=== PATIENT | female | born 1945 | race Caucasian/White ===

== ENCOUNTER 2023-08-05 20:51 | Inpatient (IN) | payer OTHER, SELFPAY ==
[2023-08-05 21:16] VITALS: BP 143/64; PULSE 72; RESP 16; TEMP 36.2; O2SAT 99
[2023-08-06 03:29] VITALS: BMI 23.3
--- NOTE | 2023-08-06 04:55 | PC.ADMIT ---
Pt is a 78 years old female admitted to the unit after referral from care team at [facility] from her assisted living facility. Pt arrived on unit at 20:48. Legal status: CV, placed on 5mins checks. Current medical issues are unspecified Dementia and unspecified Depressive disorder. pt has no records of substance use. per crisis note, she was found by facility staff very frightened, crying and unable to recognize staff. Per pt's facility staff, pt has had worsening emotional deregulation over the past month. Current presentation at the time of admission; pt is alert and oriented to self and place, calm and cooperative, pt able to tell she was in the hospital but not sure which hospital. skin check intact except for mild skin irritation noted on anterior chest area from what looks like coronel from EKG leads. pt reported neck pain/discomfort but declined to take any medication. pt has steady gait, walks independently. Provider oncall notified of admission and orders obtained. Pt reports feeling safe in hospital.
[2023-08-06 08:36] VITALS: BP 112/67; PULSE 83; TEMP 36.7; O2SAT 98
--- NOTE | 2023-08-06 11:54 | HO.PM.IMCN ---
History of Present Illness Data of Consult Service Date: 08/06/23 Requesting physician: Roberto Basilio Primary Care Provider: Vinicio Saunders MD HPI Reason for consult: medical H&P 78-year-old female with history of hyperlipidemia, hypothyroidism, hypertension, and anxiety and depression admitted to Psychiatry with consult placed to hospitalist service for medical H and P. She is not good historian. Reviewed labs from prior ED which are reassuring. She has no complaints at this time. She denies any alcohol use, illicit drug use, or cigarette smoking. Review of Systems Review of Systems: General: No fevers, malaise, unintentional weight loss HEENT: No blurred vision, diplopia. No sore throat, nasal congestion, rhinorrhea, sinus pain, ear pain Cardiovascular: No chest pain, palpitations, or leg edema Respiratory: No shortness of breath, wheezing, cough GI: No abdominal pain, nausea, vomiting, diarrhea, constipation, melena, hematochezia : No dysuria, hematuria, increased urinary frequency, decreased urinary output MSK: No myalgia, back pain Neuro: No headaches, weakness, paresthesias Skin: No rashes or lesions [facility] Medical History Hyperlipidemia Anxiety and depression Hypothyroidism HTN (hypertension) Social History Housing: Assisted Living Facility Unable to assess alcohol history related to: Unknown Patient Tobacco Use Status: Tobacco use Unknown Currently Displaying Signs/Symptoms of Drug Intoxication Withdrawal: No Advance Directives: No Advance Directives Information Provided: No Do you have thoughts of harming others: None Do you have a plan to hurt others: No Plan Patient : No Meds Allergies Allergy/AdvReac Type Severity Reaction Status Date / Time aspirin Allergy Unknown Unknown Verified 08/05/23 21:31 Penicillins Allergy Unknown Unknown Verified 08/05/23 21:31 NSAIDS (Non-Steroidal AdvReac Unknown Unknown Verified 08/05/23 21:31 Anti-Inflamma Active Medications: Current Medications Acetaminophen (Acetaminophen 325 Mg Tablet) 650 mg PO Q6H PRN PRN Reason: Headache/Pain Mild Scale (1-3) Al Hydroxide/Mg Hydroxide (Magnesium Hydrox/Alum Hydrox 30 Ml Oral.Susp) 30 ml PO Q6H PRN PRN Reason: Heartburn/Nausea Magnesium Hydroxide (Milk Of Magnesia 30 Ml Oral.Susp) 30 ml PO DAILY PRN PRN Reason: Constipation Trazodone HCl (Trazodone Hcl 50 Mg Tablet) 50 mg PO BEDTIME MRX1 PRN PRN Reason: Insomnia Home Medications Medication Instructions Recorded Confirmed Last Taken Type atorvastatin 80 mg tablet 80 mg PO BEDTIME 08/05/23 08/06/23 Unknown History duloxetine 60 mg capsule,delayed 60 mg PO DAILY 08/05/23 08/06/23 Unknown History release sprinkle levothyroxine 88 mcg capsule 88 mcg PO DAILY 08/05/23 08/06/23 Unknown History lisinopril 5 mg tablet 5 mg PO DAILY 08/05/23 08/06/23 Unknown History lorazepam 1 mg tablet (Ativan) 1 mg PO NEEDED 08/05/23 08/06/23 Unknown History lorazepam 1 mg tablet (Ativan) 1 mg PO BEDTIME 08/05/23 08/06/23 Unknown History Physical Exam Vital Signs and Narrative: Vital Signs: Last Vital Signs Temp 98.0 F 08/06/23 08:36 Pulse 83 08/06/23 08:36 Resp 16 08/05/23 21:16 BP 112/67 08/06/23 08:36 Pulse Ox 98 08/06/23 08:36 O2 Del Method Room Air 08/06/23 08:36 BMI result Body Mass Index 23.3 Constitutional - Awake and Alert, No apparent distress Eyes - PERRLA, EOMI Cardiovascular - S1S2, RRR, No edema Respiratory - Normal lung expansion, Normal respiratory effort, No respiratory distress, CTA bilaterally Gastrointestinal - NT / ND; +BS; No rebound or guarding Extremities - no calf tenderness bilaterally, no swelling Musculoskeletal - Normal inspection, normal ROM Skin - Warm/Dry Neurological - Alert & oriented x3, CN II-XII in tact, 5/5 strength BUE and BLE Psychological - Appropriate affect Assessment and Plan (1) Routine medical exam: Status: Acute Plan 78-year-old female with history of hyperlipidemia, hypothyroidism, hypertension, and anxiety and depression admitted to Psychiatry with consult placed to hospitalist service for medical H and P. #Mood disorder -plan per psychiatry # hypothyroidism -continue Synthroid # hypertension -blood pressure controlled -continue lisinopril # hyperlipidemia -continue statin Thank you for allowing me to participate in this consult. Signing off at this time. Please do not hesitate to call for further questions. Time Spent With Patient Time: Total time managing care of this patient today ____ minutes.
--- NOTE | 2023-08-06 13:42 | P.HPPS_ITS ---
HPI Date of Service: 08/06/23 Chief Complaint: Unspecified dementia Unspecified depressive disord Sources of Information: patient interviewed, chart reviewed and crisis/core team assessment reviewed HPI Subjective Notes: [place] Warning and Section 12B Narrative: Ms. Ansari is a 78 year-old woman with hx of AD dementia. Pt was brought via [place] [facility] ED due to increased agitation, crying, drooling and increasingly more confused. Medical work up in the ED including CBC, CMP, head CT. UA did not show s/s of UTI. Chest X-ray. All unremarkable. Per [id number] cymbalta had been increased and pt few days after presented as more paranoid and suspicious, reporting that she was . On the unit, pt presents as tearful. She does not know where she is. She reports one of her son's was murdered. She reports I don't know if it was here. Pt unable to provide much information. She asks this curriculum writer to contact her family. She does say that she has memory problems and she is forgetful. She is not able to tell me the year, month or date. Past Psychiatric History: Inpatient: none OP: [facility], Dr. Valdivia [phone] Past medication trials: cymbalta. Medical Evaluation Reviewed: Yes [facility] Medical History Hyperlipidemia Anxiety and depression Hypothyroidism HTN (hypertension) Social History: Pt has 4 sons. Two of them . One in fact was murder. She resides at [place]. Substance History: None Trauma History: lost two sons Diagnostics Vital Signs (24Hr): Vital Signs - 24 hr 08/05/23 21:16 08/06/23 08:36 Temperature 97.2 F 98.0 F Pulse Rate 72 83 Respiratory Rate 16 Blood Pressure 143/64 H 112/67 Pulse Oximetry 99 98 Oxygen Delivery Method Room Air Room Air BMI result Body Mass Index 23.3 Meds/Allergies Meds Home Medications Medication Instructions Recorded Confirmed Type atorvastatin 80 mg tablet 80 mg PO BEDTIME 08/05/23 08/06/23 History duloxetine 60 mg capsule,delayed 60 mg PO DAILY 08/05/23 08/06/23 History release sprinkle levothyroxine 88 mcg capsule 88 mcg PO DAILY 08/05/23 08/06/23 History lisinopril 5 mg tablet 5 mg PO DAILY 08/05/23 08/06/23 History lorazepam 1 mg tablet (Ativan) 1 mg PO NEEDED 08/05/23 08/06/23 History lorazepam 1 mg tablet (Ativan) 1 mg PO BEDTIME 08/05/23 08/06/23 History Allergies Allergies Allergy/AdvReac Type Severity Reaction Status Date / Time aspirin Allergy Unknown Unknown Verified 08/05/23 21:31 Penicillins Allergy Unknown Unknown Verified 08/05/23 21:31 NSAIDS (Non-Steroidal AdvReac Unknown Unknown Verified 08/05/23 21:31 Anti-Inflamma Mental Status Exam Mental Status Exam Narrative: Appearance:casually groomed, fair hygiene, in NAD behavior:fearful Psychomotor: no agitation or retardation noted Speech:mumbles, delayed in response, spontaneous TP:disorganized TC:talks about son who was murder, fearful of being here Mood: I don't know Affect:fearful, anxious SI:none HI:none VH/AH:appears internally preoccupied Delusions:delusions of being and thinks that resident is her - this is new in past 2 weeks. Insight/judgment: memory/cog: alert, not oriented to situation, month, date, year. Assessment & Plan Assessment & Plan (1) Major neurocognitive disorder due to Alzheimer's disease: Status: Acute Code(s): G30.9 - Alzheimer's disease, unspecified; F02.80 - Dementia in other diseases classified elsewhere, unspecified severity, without behavioral disturbance, psychotic disturbance, mood disturbance, and anxiety Plan Mrs. Ansari is a 78 year-old woman hx of AD who was brought from [place] to [facility] ED due to increase confusion, paranoid delusions of being and being to another resident. [id number] reports increase in paranoia since cymbalta was started 3 weeks ago and recently dose increased. Will stop cymbalta, reassess prior to starting antipsychotic if psychosis persists. PLAN 1. Admit to [place], Sect 12b, 15 minutes checks for safety 2. stop cymbalta 3. Obtain collateral information 4. Aftercare planning Patient educated on: diagnosis (HCP- pt does not have capacity. ) and medication risk/benefits Reason for continued inpatient stay Substantial Risk for: inability to function Statement Statement: I have reviewed the history and physical and performed a pertinent examination on my patient. No changes have occurred unless specified. If the History and Physical was not performed prior to admission, the Hospitalist's service will be consulted for completing the admission physical. Time Spent With Patient Time: Total time managing care of this patient today ____ minutes.
[2023-08-06 18:00] VITALS: BP 154/74; PULSE 86; RESP 18; TEMP 36.6; O2SAT 97
--- NOTE | 2023-08-06 23:18 | PC.NURSE ---
Assumed care of patient 19:00 08/06. See assessments for full details. Handoff report given 23:00.
[2023-08-07 07:45] VITALS: BP 130/68; PULSE 89; RESP 16; TEMP 36.8; O2SAT 95
[2023-08-07 18:16] VITALS: BP 133/79; PULSE 94
[2023-08-07] MEDS: lisinopriL 5 MG TABLET PO (18:16)
--- NOTE | 2023-08-07 20:13 | HO.PSYCHPN ---
Subjective Subjective Date of Service: 08/07/23 Reason For Visit: Unspecified dementia Unspecified depressive disord Subjective Notes: Conditional Voluntary Healthcare Proxy: Yes Interim History: Pt presents as more organized. she reports doing well. She does become tearful and reports missing family. Pt not oriented to place or situation. She is nor reporting ideas of being or resident being her . Pt slept throught the night. collateral information gathered from her [id number] Haylee, who reports she became more paranoid with cymbalta. she has not gotten cymbalta here and is doing much better. Review of Systems Review of Systems Pt denies chest pain, or other type of pain. No SOB. No diarrhea or constipation. Mental Status Exam Mental Status Exam Narrative: Appearance:casually groomed, fair hygiene, in NAD behavior:fearful Psychomotor: no agitation or retardation noted Speech:mumbles, delayed in response, spontaneous TP:disorganized TC:talks about son who was murder, fearful of being here Mood: I don't know Affect:fearful, anxious SI:none HI:none VH/AH:appears internally preoccupied Delusions:delusions of being and thinks that resident is her - this is new in past 2 weeks. Insight/judgment: memory/cog: alert, not oriented to situation, month, date, year. Diagnostics Vital Signs (24Hr): Vital Signs - 24 hr 08/07/23 07:45 08/07/23 18:16 Temperature 98.2 F Pulse Rate 89 94 Respiratory Rate 16 Blood Pressure 130/68 133/79 Pulse Oximetry 95 Oxygen Delivery Method Room Air BMI result Body Mass Index 23.3 Medications Medications Current Medications Acetaminophen (Acetaminophen 325 Mg Tablet) 325 mg PO Q6H PRN PRN Reason: Headache/Pain Mild Scale (1-3) Al Hydroxide/Mg Hydroxide (Magnesium Hydrox/Alum Hydrox 30 Ml Oral.Susp) 30 ml PO Q6H PRN PRN Reason: Heartburn/Nausea Atorvastatin Calcium (Atorvastatin Calcium 80 Mg Tablet) 80 mg PO BEDTIME STEPH Levothyroxine Sodium (Levothyroxine Sodium 88 Mcg Tablet) 88 mcg PO DAILY STEPH Lisinopril (Lisinopril 5 Mg Tablet) 5 mg PO DAILY STEPH; Protocol Last Admin: 08/07/23 18:16 Dose: 5 mg Magnesium Hydroxide (Milk Of Magnesia 30 Ml Oral.Susp) 30 ml PO DAILY PRN PRN Reason: Constipation Trazodone HCl (Trazodone Hcl 50 Mg Tablet) 50 mg PO BEDTIME PRN PRN Reason: Insomnia Allergies Allergies Allergy/AdvReac Type Severity Reaction Status Date / Time aspirin Allergy Unknown Unknown Verified 08/05/23 21:31 Penicillins Allergy Unknown Unknown Verified 08/05/23 21:31 NSAIDS (Non-Steroidal AdvReac Unknown Unknown Verified 08/05/23 21:31 Anti-Inflamma Assessment & Plan Assessment & Plan (1) Major neurocognitive disorder due to Alzheimer's disease: Status: Acute Code(s): G30.9 - Alzheimer's disease, unspecified; F02.80 - Dementia in other diseases classified elsewhere, unspecified severity, without behavioral disturbance, psychotic disturbance, mood disturbance, and anxiety Plan Mrs. Ansari is a 78 year-old woman hx of AD who was brought from [place] to [facility] ED due to increase confusion, paranoid delusions of being and being to another resident. [id number] reports increase in paranoia since cymbalta was started 3 weeks ago and recently dose increased. Will stop cymbalta, reassess prior to starting antipsychotic if psychosis persists. PLAN 08/07 continue tx. d/c cymbalta as it appear to have worsen paranoia and confusion. pt appears better today, family agree. Reason for continued inpatient stay Substantial Risk for: inability to function Time Spent With Patient Time: Total time managing care of this patient today ____ minutes.
[2023-08-07 20:18] VITALS: BP 137/75; PULSE 88; RESP 18; TEMP 36.3; O2SAT 94
[2023-08-07] MEDS: Atorvastatin Calcium 80 MG TABLET PO (20:55)
[2023-08-08 08:44] VITALS: BP 140/73; PULSE 75; RESP 18; TEMP 36.8; O2SAT 99
[2023-08-08] MEDS: lisinopriL 5 MG TABLET PO (08:46)
[2023-08-08] MEDS: Magnesium Hydrox/Alum Hydrox 30 ML ORAL.SUSP PO (08:46)
[2023-08-08] MEDS: Levothyroxine Sodium 88 MCG TABLET PO (08:46)
[2023-08-08 18:00] VITALS: BP 124/64; PULSE 79; RESP 17; TEMP 36.4; O2SAT 99
[2023-08-08] MEDS: Atorvastatin Calcium 80 MG TABLET PO (22:04)
[2023-08-08] MEDS: traZODone HCL 50 MG TABLET PO ×2 (22:04→23:28)
[2023-08-08] MEDS: Acetaminophen 325 MG TABLET PO (23:27)
[2023-08-09 07:45] VITALS: BP 126/89; PULSE 79; RESP 18; TEMP 36.2; O2SAT 97
[2023-08-09] MEDS: Levothyroxine Sodium 88 MCG TABLET PO (08:25)
[2023-08-09] MEDS: lisinopriL 5 MG TABLET PO (08:25)
--- NOTE | 2023-08-09 08:47 | P.PNPSI_ITS ---
Subjective Subjective Date of Service: 08/08/23 Reason For Visit: Unspecified dementia Unspecified depressive disord Subjective Notes: Conditional Voluntary Healthcare Proxy: Yes Interim History: Pt continues to present as more organized. She is not oriented to place or situation or month at baseline. She is not talking about delusions of being or having relationship with peer at [facility]. Pt slept. No aggression towards self or others. Review of Systems Review of Systems Pt denies chest pain, or other type of pain. No SOB. No diarrhea or constipation. Mental Status Exam Mental Status Exam Narrative: Appearance:casually groomed, fair hygiene, in NAD behavior:fearful Psychomotor: no agitation or retardation noted Speech:mumbles, delayed in response, spontaneous TP:disorganized TC:talks about son who was murder, fearful of being here Mood: I don't know Affect:fearful, anxious SI:none HI:none VH/AH:appears internally preoccupied Delusions:delusions of being and thinks that resident is her - this is new in past 2 weeks. Insight/judgment: memory/cog: alert, not oriented to situation, month, date, year. Diagnostics Vital Signs (24Hr): Vital Signs - 24 hr 08/08/23 18:00 Temperature 97.5 F Pulse Rate 79 Respiratory Rate 17 Blood Pressure 124/64 Pulse Oximetry 99 Oxygen Delivery Method Room Air BMI result Body Mass Index 23.3 Medications Medications Current Medications Acetaminophen (Acetaminophen 325 Mg Tablet) 325 mg PO Q6H PRN PRN Reason: Headache/Pain Mild Scale (1-3) Last Admin: 08/08/23 23:27 Dose: 325 mg Al Hydroxide/Mg Hydroxide (Magnesium Hydrox/Alum Hydrox 30 Ml Oral.Susp) 30 ml PO Q6H PRN PRN Reason: Heartburn/Nausea Last Admin: 08/08/23 08:46 Dose: 30 ml Atorvastatin Calcium (Atorvastatin Calcium 80 Mg Tablet) 80 mg PO BEDTIME STEPH Last Admin: 08/08/23 22:04 Dose: 80 mg Levothyroxine Sodium (Levothyroxine Sodium 88 Mcg Tablet) 88 mcg PO DAILY STEPH Last Admin: 08/09/23 08:25 Dose: 88 mcg Lisinopril (Lisinopril 5 Mg Tablet) 5 mg PO DAILY STEPH; Protocol Last Admin: 08/09/23 08:25 Dose: 5 mg Magnesium Hydroxide (Milk Of Magnesia 30 Ml Oral.Susp) 30 ml PO DAILY PRN PRN Reason: Constipation Trazodone HCl (Trazodone Hcl 50 Mg Tablet) 50 mg PO BEDTIME PRN PRN Reason: Insomnia Last Admin: 08/08/23 23:28 Dose: 50 mg Allergies Allergies Allergy/AdvReac Type Severity Reaction Status Date / Time aspirin Allergy Unknown Unknown Verified 08/05/23 21:31 Penicillins Allergy Unknown Unknown Verified 08/05/23 21:31 NSAIDS (Non-Steroidal AdvReac Unknown Unknown Verified 08/05/23 21:31 Anti-Inflamma Assessment & Plan Assessment & Plan (1) Major neurocognitive disorder due to Alzheimer's disease: Status: Acute Code(s): G30.9 - Alzheimer's disease, unspecified; F02.80 - Dementia in other diseases classified elsewhere, unspecified severity, without behavioral disturbance, psychotic disturbance, mood disturbance, and anxiety Plan Mrs. Ansari is a 78 year-old woman hx of AD who was brought from [place] to [facility] ED due to increase confusion, paranoid delusions of being and being to another resident. [id number]-[id number]-[id number] reports increase in paranoia since cymbalta was started 3 weeks ago and recently dose increased. Will stop cymbalta, reassess prior to starting antipsychotic if psychosis persists. PLAN 08/07 continue tx. d/c cymbalta as it appear to have worsen paranoia and confusion. pt appears better today, family agree. 08/08 continue tx. Reason for continued inpatient stay Substantial Risk for: inability to function Time Spent With Patient Time: Total time managing care of this patient today ____ minutes.
--- NOTE | 2023-08-09 10:45 | HO.PSYCHPN ---
Subjective Subjective Date of Service: 08/09/23 Reason For Visit: Unspecified dementia Unspecified depressive disord Subjective Notes: Conditional Voluntary Healthcare Proxy: Yes Interim History: Pt tells this engineering writer she does not think she is . However, she has been persistent with another male peer and does not seem to realize boundaries. Seems like there are still some ideas of having romantic relationship with someone else. Medication Compliance: Yes Review of Systems Review of Systems Pt denies chest pain, or other type of pain. No SOB. No diarrhea or constipation. Mental Status Exam Mental Status Exam Narrative: Appearance:casually groomed, fair hygiene, in NAD behavior:fearful Psychomotor: no agitation or retardation noted Speech:more clear, delayed in response, spontaneous TP:disorganized TC:talks about son who was murder, fearful of being here Mood: I don't know Affect:fearful, anxious SI:none HI:none VH/AH:appears internally preoccupied Delusions:delusions of being and thinks that resident is her - this is new in past 2 weeks. Insight/judgment: memory/cog: alert, not oriented to situation, month, date, year. Diagnostics Vital Signs (24Hr): Vital Signs - 24 hr 08/08/23 18:00 08/09/23 07:45 Temperature 97.5 F 97.2 F Pulse Rate 79 79 Respiratory Rate 17 18 Blood Pressure 124/64 126/89 Pulse Oximetry 99 97 Oxygen Delivery Method Room Air Room Air BMI result Body Mass Index 23.3 Medications Medications Current Medications Acetaminophen (Acetaminophen 325 Mg Tablet) 325 mg PO Q6H PRN PRN Reason: Headache/Pain Mild Scale (1-3) Last Admin: 08/08/23 23:27 Dose: 325 mg Al Hydroxide/Mg Hydroxide (Magnesium Hydrox/Alum Hydrox 30 Ml Oral.Susp) 30 ml PO Q6H PRN PRN Reason: Heartburn/Nausea Last Admin: 08/08/23 08:46 Dose: 30 ml Atorvastatin Calcium (Atorvastatin Calcium 80 Mg Tablet) 80 mg PO BEDTIME STEPH Last Admin: 08/08/23 22:04 Dose: 80 mg Levothyroxine Sodium (Levothyroxine Sodium 88 Mcg Tablet) 88 mcg PO DAILY STEPH Last Admin: 08/09/23 08:25 Dose: 88 mcg Lisinopril (Lisinopril 5 Mg Tablet) 5 mg PO DAILY STEPH; Protocol Last Admin: 08/09/23 08:25 Dose: 5 mg Magnesium Hydroxide (Milk Of Magnesia 30 Ml Oral.Susp) 30 ml PO DAILY PRN PRN Reason: Constipation Trazodone HCl (Trazodone Hcl 50 Mg Tablet) 50 mg PO BEDTIME PRN PRN Reason: Insomnia Last Admin: 08/08/23 23:28 Dose: 50 mg Allergies Allergies Allergy/AdvReac Type Severity Reaction Status Date / Time aspirin Allergy Unknown Unknown Verified 08/05/23 21:31 Penicillins Allergy Unknown Unknown Verified 08/05/23 21:31 NSAIDS (Non-Steroidal AdvReac Unknown Unknown Verified 08/05/23 21:31 Anti-Inflamma Assessment & Plan Assessment & Plan (1) Major neurocognitive disorder due to Alzheimer's disease: Status: Acute Code(s): G30.9 - Alzheimer's disease, unspecified; F02.80 - Dementia in other diseases classified elsewhere, unspecified severity, without behavioral disturbance, psychotic disturbance, mood disturbance, and anxiety Plan Mrs. Ansari is a 78 year-old woman hx of AD who was brought from [place] to [facility] ED due to increase confusion, paranoid delusions of being and being to another resident. [id number]-[id number] reports increase in paranoia since cymbalta was started 3 weeks ago and recently dose increased. Will stop cymbalta, reassess prior to starting antipsychotic if psychosis persists. PLAN 08/07 continue tx. d/c cymbalta as it appear to have worsen paranoia and confusion. pt appears better today, family agree. 08/08 continue tx. 08/09 continue tx. Reason for continued inpatient stay Substantial Risk for: inability to function Time Spent With Patient Time: Total time managing care of this patient today ____ minutes.
[2023-08-09 19:00] VITALS: BP 134/78; PULSE 89; RESP 18; TEMP 36.6; O2SAT 99
[2023-08-09] MEDS: Atorvastatin Calcium 80 MG TABLET PO (20:47)
[2023-08-10 06:00] VITALS: BP 119/62; PULSE 84; RESP 18; TEMP 36.7; O2SAT 99
[2023-08-10] MEDS: Levothyroxine Sodium 88 MCG TABLET PO (08:44)
[2023-08-10] MEDS: lisinopriL 5 MG TABLET PO (08:44)
[2023-08-10 19:50] VITALS: BP 128/62; PULSE 80; RESP 16; TEMP 36.3; O2SAT 97
[2023-08-10] MEDS: Atorvastatin Calcium 80 MG TABLET PO (20:30)
[2023-08-10] MEDS: traZODone HCL 50 MG TABLET PO (20:30)
--- NOTE | 2023-08-10 20:39 | P.PNPSI_ITS ---
Subjective Subjective Date of Service: 08/10/23 Reason For Visit: Unspecified dementia Unspecified depressive disord Subjective Notes: Conditional Voluntary Interim History: Pt calmer, but not oriented to place or situation. She reports staff stealing from her. She has been sleeping most of the night. No combative behaviors. Review of Systems Review of Systems Pt denies chest pain, or other type of pain. No SOB. No diarrhea or constipation. Mental Status Exam Mental Status Exam Narrative: Appearance:casually groomed, fair hygiene, in NAD behavior:fearful Psychomotor: no agitation or retardation noted Speech:more clear, delayed in response, spontaneous TP:disorganized TC:talks about son who was murder, fearful of being here Mood: I don't know Affect:fearful, anxious SI:none HI:none VH/AH:appears internally preoccupied Delusions:delusions of being and thinks that resident is her - this is new in past 2 weeks. Insight/judgment: memory/cog: alert, not oriented to situation, month, date, year. Diagnostics Vital Signs (24Hr): Vital Signs - 24 hr 08/10/23 06:00 Temperature 98.0 F Pulse Rate 84 Respiratory Rate 18 Blood Pressure 119/62 Pulse Oximetry 99 Oxygen Delivery Method Room Air BMI result Body Mass Index 23.3 Medications Medications Current Medications Acetaminophen (Acetaminophen 325 Mg Tablet) 325 mg PO Q6H PRN PRN Reason: Headache/Pain Mild Scale (1-3) Last Admin: 08/08/23 23:27 Dose: 325 mg Al Hydroxide/Mg Hydroxide (Magnesium Hydrox/Alum Hydrox 30 Ml Oral.Susp) 30 ml PO Q6H PRN PRN Reason: Heartburn/Nausea Last Admin: 08/08/23 08:46 Dose: 30 ml Atorvastatin Calcium (Atorvastatin Calcium 80 Mg Tablet) 80 mg PO BEDTIME STEPH Last Admin: 08/10/23 20:30 Dose: 80 mg Levothyroxine Sodium (Levothyroxine Sodium 88 Mcg Tablet) 88 mcg PO DAILY STEPH Last Admin: 08/10/23 08:44 Dose: 88 mcg Lisinopril (Lisinopril 5 Mg Tablet) 5 mg PO DAILY STEPH; Protocol Last Admin: 08/10/23 08:44 Dose: 5 mg Magnesium Hydroxide (Milk Of Magnesia 30 Ml Oral.Susp) 30 ml PO DAILY PRN PRN Reason: Constipation Trazodone HCl (Trazodone Hcl 50 Mg Tablet) 50 mg PO BEDTIME PRN PRN Reason: Insomnia Last Admin: 08/10/23 20:30 Dose: 50 mg Allergies Allergies Allergy/AdvReac Type Severity Reaction Status Date / Time aspirin Allergy Unknown Unknown Verified 08/05/23 21:31 Penicillins Allergy Unknown Unknown Verified 08/05/23 21:31 NSAIDS (Non-Steroidal AdvReac Unknown Unknown Verified 08/05/23 21:31 Anti-Inflamma Assessment & Plan Assessment & Plan (1) Major neurocognitive disorder due to Alzheimer's disease: Status: Acute Code(s): G30.9 - Alzheimer's disease, unspecified; F02.80 - Dementia in other diseases classified elsewhere, unspecified severity, without behavioral disturbance, psychotic disturbance, mood disturbance, and anxiety Plan Mrs. Ansari is a 78 year-old woman hx of AD who was brought from [place] to [facility] ED due to increase confusion, paranoid delusions of being and being to another resident. [id number] reports increase in paranoia since cymbalta was started 3 weeks ago and recently dose increased. Will stop cymbalta, reassess prior to starting antipsychotic if psychosis persists. PLAN 08/07 continue tx. d/c cymbalta as it appear to have worsen paranoia and confusion. pt appears better today, family agree. 08/08 continue tx. 08/09 continue tx. 08/10 continue tx. may try low dose risperidone Reason for continued inpatient stay Substantial Risk for: inability to function Time Spent With Patient Time: Total time managing care of this patient today ____ minutes.
[2023-08-11 06:00] VITALS: BP 144/78; PULSE 76; RESP 16; TEMP 36.6; O2SAT 97
[2023-08-11] MEDS: Levothyroxine Sodium 88 MCG TABLET PO (08:20)
[2023-08-11] MEDS: lisinopriL 5 MG TABLET PO (08:20)
--- NOTE | 2023-08-11 16:13 | P.PNPSI_ITS ---
Subjective Subjective Date of Service: 08/11/23 Reason For Visit: Unspecified dementia Unspecified depressive disord Subjective Notes: Conditional Voluntary Interim History: Pt less delusions of being but thinks people are stealing from her. Met with pt and her daugther in law. Will start low dose risperidone at bedtime. No aggression towards self or others. Review of Systems Review of Systems Pt denies chest pain, or other type of pain. No SOB. No diarrhea or constipation. Mental Status Exam Mental Status Exam Narrative: Appearance:casually groomed, fair hygiene, in NAD behavior:fearful Psychomotor: no agitation or retardation noted Speech:more clear, delayed in response, spontaneous TP:disorganized TC:talks about son who was murder, fearful of being here Mood: I don't know Affect:fearful, anxious SI:none HI:none VH/AH:appears internally preoccupied Delusions:delusions of being and thinks that resident is her - this is new in past 2 weeks. Insight/judgment: memory/cog: alert, not oriented to situation, month, date, year. Patient Appearance: Appropriate Patient Orientation: Person and Situation Level of Consciousness: Awake and Appropriate Patient Behavior: Guarded and Passive Mood Description: Withdrawn and Constricted Affect Description: Calm Patient Cognition Impaired: Yes Ability to Follow Directions: Good Speech Pattern: Clear Diagnostics Vital Signs (24Hr): Vital Signs - 24 hr 08/10/23 19:50 08/11/23 06:00 Temperature 97.3 F 97.8 F Pulse Rate 80 76 Respiratory Rate 16 16 Blood Pressure 128/62 144/78 H Pulse Oximetry 97 97 Oxygen Delivery Method Room Air Room Air BMI result Body Mass Index 23.3 Medications Medications Current Medications Acetaminophen (Acetaminophen 325 Mg Tablet) 325 mg PO Q6H PRN PRN Reason: Headache/Pain Mild Scale (1-3) Last Admin: 08/08/23 23:27 Dose: 325 mg Al Hydroxide/Mg Hydroxide (Magnesium Hydrox/Alum Hydrox 30 Ml Oral.Susp) 30 ml PO Q6H PRN PRN Reason: Heartburn/Nausea Last Admin: 08/08/23 08:46 Dose: 30 ml Atorvastatin Calcium (Atorvastatin Calcium 80 Mg Tablet) 80 mg PO BEDTIME STEPH Last Admin: 08/10/23 20:30 Dose: 80 mg Levothyroxine Sodium (Levothyroxine Sodium 88 Mcg Tablet) 88 mcg PO DAILY STEPH Last Admin: 08/11/23 08:20 Dose: 88 mcg Lidocaine (Lidocaine 4 % Patch Adh..Patch) 1 patch TRANSDERMA DAILY STEPH; Protocol Last Admin: 08/11/23 15:30 Dose: Not Given Lisinopril (Lisinopril 5 Mg Tablet) 5 mg PO DAILY STEPH; Protocol Last Admin: 08/11/23 08:20 Dose: 5 mg Magnesium Hydroxide (Milk Of Magnesia 30 Ml Oral.Susp) 30 ml PO DAILY PRN PRN Reason: Constipation Risperidone (Risperidone 0.25 Mg Tablet) 0.5 mg PO BEDTIME STEPH Simethicone (Simethicone 80 Mg Tab.Chew) 80 mg PO TID STEPH Trazodone HCl (Trazodone Hcl 50 Mg Tablet) 50 mg PO BEDTIME PRN PRN Reason: Insomnia Last Admin: 08/10/23 20:30 Dose: 50 mg Allergies Allergies Allergy/AdvReac Type Severity Reaction Status Date / Time aspirin Allergy Unknown Unknown Verified 08/05/23 21:31 Penicillins Allergy Unknown Unknown Verified 08/05/23 21:31 NSAIDS (Non-Steroidal AdvReac Unknown Unknown Verified 08/05/23 21:31 Anti-Inflamma Assessment & Plan Assessment & Plan (1) Major neurocognitive disorder due to Alzheimer's disease: Status: Acute Code(s): G30.9 - Alzheimer's disease, unspecified; F02.80 - Dementia in other diseases classified elsewhere, unspecified severity, without behavioral disturbance, psychotic disturbance, mood disturbance, and anxiety Plan Mrs. Ansari is a 78 year-old woman hx of AD who was brought from [place] to [facility] ED due to increase confusion, paranoid delusions of being and being to another resident. [id number] reports increase in paranoia since cymbalta was started 3 weeks ago and recently dose increased. Will stop cymbalta, reassess prior to starting antipsychotic if psychosis persists. PLAN 08/07 continue tx. d/c cymbalta as it appear to have worsen paranoia and confusion. pt appears better today, family agree. 08/08 continue tx. 08/09 continue tx. 08/10 continue tx 08/11 risperidone 0.5mg po qhs Reason for continued inpatient stay Substantial Risk for: inability to function Time Spent With Patient Time: Total time managing care of this patient today ____ minutes.
[2023-08-11] MEDS: Simethicone 80 MG TAB.CHEW PO ×2 (16:15→20:41)
[2023-08-11] MEDS: Lidocaine 4 % Patch ADH..PATCH 1 PATCH TRANSDERMA (16:40)
[2023-08-11 17:00] VITALS: BMI 24.0
[2023-08-11 18:00] VITALS: BP 165/94; PULSE 80; RESP 16; TEMP 37.3; O2SAT 99
[2023-08-11] MEDS: Atorvastatin Calcium 80 MG TABLET PO (20:40)
[2023-08-11] MEDS: risperiDONE 0.25 MG TABLET 0.5 MG PO (20:40)
[2023-08-11] MEDS: Magnesium Hydrox/Alum Hydrox 30 ML ORAL.SUSP PO (20:58)
[2023-08-12] MEDS: Acetaminophen 325 MG TABLET PO (00:21)
[2023-08-12] MEDS: traZODone HCL 50 MG TABLET PO ×2 (00:22→20:03)
[2023-08-12 08:00] VITALS: BP 119/62; PULSE 82; RESP 16; TEMP 36.3; O2SAT 99
[2023-08-12] MEDS: lisinopriL 5 MG TABLET PO (08:24)
[2023-08-12] MEDS: Simethicone 80 MG TAB.CHEW PO ×3 (08:24→20:03)
[2023-08-12] MEDS: Levothyroxine Sodium 88 MCG TABLET PO (08:24)
[2023-08-12] MEDS: Lidocaine 4 % Patch ADH..PATCH 1 PATCH TRANSDERMA (08:26)
--- NOTE | 2023-08-12 15:32 | P.PNPSI_ITS ---
Subjective Subjective Date of Service: 08/12/23 Reason For Visit: Unspecified dementia Unspecified depressive disord Subjective Notes: Conditional Voluntary Interim History: Pt pleasant on approach. 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 She worries that family has not come to visit. She is sleeping well. No aggression towards self or others. Review of Systems Review of Systems Pt denies chest pain, or other type of pain. No SOB. No diarrhea or constipation. Mental Status Exam Mental Status Exam Narrative: Appearance:casually groomed, fair hygiene, in NAD behavior:fearful Psychomotor: no agitation or retardation noted Speech:more clear, delayed in response, spontaneous TP:disorganized TC:talks about son who was murder, fearful of being here Mood: I don't know Affect:fearful, anxious SI:none HI:none VH/AH:appears internally preoccupied Delusions:delusions of being and thinks that resident is her - this is new in past 2 weeks. Insight/judgment: memory/cog: alert, not oriented to situation, month, date, year. Diagnostics Vital Signs (24Hr): Vital Signs - 24 hr 08/11/23 18:00 08/12/23 08:00 Temperature 99.1 F 97.4 F Pulse Rate 80 82 Respiratory Rate 16 16 Blood Pressure 165/94 H 119/62 Pulse Oximetry 99 99 Oxygen Delivery Method Room Air Room Air BMI result Body Mass Index 24.0 Medications Medications Current Medications Acetaminophen (Acetaminophen 325 Mg Tablet) 325 mg PO Q6H PRN PRN Reason: Headache/Pain Mild Scale (1-3) Last Admin: 08/12/23 00:21 Dose: 325 mg Al Hydroxide/Mg Hydroxide (Magnesium Hydrox/Alum Hydrox 30 Ml Oral.Susp) 30 ml PO Q6H PRN PRN Reason: Heartburn/Nausea Last Admin: 08/11/23 20:58 Dose: 30 ml Atorvastatin Calcium (Atorvastatin Calcium 80 Mg Tablet) 80 mg PO BEDTIME STEPH Last Admin: 08/11/23 20:40 Dose: 80 mg Levothyroxine Sodium (Levothyroxine Sodium 88 Mcg Tablet) 88 mcg PO DAILY STEPH Last Admin: 08/12/23 08:24 Dose: 88 mcg Lidocaine (Lidocaine 4 % Patch Adh..Patch) 1 patch TRANSDERMA DAILY STEPH; Protocol Last Admin: 08/12/23 08:26 Dose: 1 patch Lisinopril (Lisinopril 5 Mg Tablet) 5 mg PO DAILY STEPH; Protocol Last Admin: 08/12/23 08:24 Dose: 5 mg Magnesium Hydroxide (Milk Of Magnesia 30 Ml Oral.Susp) 30 ml PO DAILY PRN PRN Reason: Constipation Risperidone (Risperidone 0.25 Mg Tablet) 0.5 mg PO BEDTIME STEPH Last Admin: 08/11/23 20:40 Dose: 0.5 mg Simethicone (Simethicone 80 Mg Tab.Chew) 80 mg PO TID STEPH Last Admin: 08/12/23 14:41 Dose: 80 mg Trazodone HCl (Trazodone Hcl 50 Mg Tablet) 50 mg PO BEDTIME PRN PRN Reason: Insomnia Last Admin: 08/12/23 00:22 Dose: 50 mg Allergies Allergies Allergy/AdvReac Type Severity Reaction Status Date / Time aspirin Allergy Unknown Unknown Verified 08/05/23 21:31 Penicillins Allergy Unknown Unknown Verified 08/05/23 21:31 NSAIDS (Non-Steroidal AdvReac Unknown Unknown Verified 08/05/23 21:31 Anti-Inflamma Assessment & Plan Assessment & Plan (1) Major neurocognitive disorder due to Alzheimer's disease: Status: Acute Code(s): G30.9 - Alzheimer's disease, unspecified; F02.80 - Dementia in other diseases classified elsewhere, unspecified severity, without behavioral disturbance, psychotic disturbance, mood disturbance, and anxiety Plan Mrs. Ansari is a 78 year-old woman hx of AD who was brought from [place] to [facility] ED due to increase confusion, paranoid delusions of being and being to another resident. [id number] reports increase in paranoia since cymbalta was started 3 weeks ago and recently dose increased. Will stop cymbalta, reassess prior to starting antipsychotic if psychosis persists. PLAN 08/07 continue tx. d/c cymbalta as it appear to have worsen paranoia and confusion. pt appears better today, family agree. 08/08 continue tx. 08/09 continue tx. 08/10 continue tx 08/11 start risperidone 0.5mg po qhs. 08/12 continue tx. Reason for continued inpatient stay Substantial Risk for: inability to function Time Spent With Patient Time: Total time managing care of this patient today ____ minutes.
[2023-08-12 19:35] VITALS: BP 122/58; PULSE 79; RESP 18; TEMP 36.1; O2SAT 99
[2023-08-12] MEDS: Atorvastatin Calcium 80 MG TABLET PO (20:03)
[2023-08-12] MEDS: risperiDONE 0.25 MG TABLET 0.5 MG PO (20:03)
--- NOTE | 2023-08-13 07:58 | HO.PSYCHPN ---
Subjective Subjective Date of Service: 08/13/23 Reason For Visit: Unspecified dementia Unspecified depressive disord Subjective Notes: Conditional Voluntary Interim History: The nursing staff reported the patient woke up at 04:00 o'clock in the morning, she was confused to use the bathroom with no problems. Overall she slept well last night. On interview the patient denies new symptoms, confused at times but easily redirectable. Mental Status Exam Mental Status Exam Patient Appearance: Appropriate Patient Orientation: Person Level of Consciousness: Awake Patient Behavior: Guarded and Passive Mood Description: Withdrawn Affect Description: Calm Patient Cognition Impaired: Yes Ability to Follow Directions: Fair Speech Pattern: Clear Hallucinations: None Delusions: Ideas of Reference Thought Process: Distracted Thought Content: positive for [place] and positive for Poverty of Content Judgement: Poor Diagnostics Vital Signs (24Hr): Vital Signs - 24 hr 08/12/23 08:00 08/12/23 19:35 Temperature 97.4 F 96.9 F Pulse Rate 82 79 Respiratory Rate 16 18 Blood Pressure 119/62 122/58 L Pulse Oximetry 99 99 Oxygen Delivery Method Room Air Room Air BMI result Body Mass Index 24.0 Medications Medications Current Medications Acetaminophen (Acetaminophen 325 Mg Tablet) 325 mg PO Q6H PRN PRN Reason: Headache/Pain Mild Scale (1-3) Last Admin: 08/12/23 00:21 Dose: 325 mg Al Hydroxide/Mg Hydroxide (Magnesium Hydrox/Alum Hydrox 30 Ml Oral.Susp) 30 ml PO Q6H PRN PRN Reason: Heartburn/Nausea Last Admin: 08/11/23 20:58 Dose: 30 ml Atorvastatin Calcium (Atorvastatin Calcium 80 Mg Tablet) 80 mg PO BEDTIME STEPH Last Admin: 08/12/23 20:03 Dose: 80 mg Levothyroxine Sodium (Levothyroxine Sodium 88 Mcg Tablet) 88 mcg PO DAILY STEPH Last Admin: 08/12/23 08:24 Dose: 88 mcg Lidocaine (Lidocaine 4 % Patch Adh..Patch) 1 patch TRANSDERMA DAILY [facility]; Protocol Last Admin: 08/12/23 08:26 Dose: 1 patch Lisinopril (Lisinopril 5 Mg Tablet) 5 mg PO DAILY STEPH; Protocol Last Admin: 08/12/23 08:24 Dose: 5 mg Magnesium Hydroxide (Milk Of Magnesia 30 Ml Oral.Susp) 30 ml PO DAILY PRN PRN Reason: Constipation Risperidone (Risperidone 0.25 Mg Tablet) 0.5 mg PO BEDTIME STEPH Last Admin: 08/12/23 20:03 Dose: 0.5 mg Simethicone (Simethicone 80 Mg Tab.Chew) 80 mg PO TID STEPH Last Admin: 08/12/23 20:03 Dose: 80 mg Trazodone HCl (Trazodone Hcl 50 Mg Tablet) 50 mg PO BEDTIME PRN PRN Reason: Insomnia Last Admin: 08/12/23 20:03 Dose: 50 mg Allergies Allergies Allergy/AdvReac Type Severity Reaction Status Date / Time aspirin Allergy Unknown Unknown Verified 08/05/23 21:31 Penicillins Allergy Unknown Unknown Verified 08/05/23 21:31 NSAIDS (Non-Steroidal AdvReac Unknown Unknown Verified 08/05/23 21:31 Anti-Inflamma Assessment & Plan Assessment & Plan (1) Major neurocognitive disorder due to Alzheimer's disease: Status: Acute Code(s): G30.9 - Alzheimer's disease, unspecified; F02.80 - Dementia in other diseases classified elsewhere, unspecified severity, without behavioral disturbance, psychotic disturbance, mood disturbance, and anxiety Plan Mrs. Ansari is a 78 year-old woman hx of AD who was brought from [place] to [facility] ED due to increase confusion, paranoid delusions of being and being to another resident. [id number] reports increase in paranoia since cymbalta was started 3 weeks ago and recently dose increased. Will stop cymbalta, reassess prior to starting antipsychotic if psychosis persists. PLAN 08/07 continue tx. d/c cymbalta as it appear to have worsen paranoia and confusion. pt appears better today, family agree. 08/08 continue tx. 08/09 continue tx. 08/13 continue same treatment Reason for continued inpatient stay Substantial Risk for: inability to function, rapid decompensation and med/psych decompensation Time Spent With Patient Time: Total time managing care of this patient today __20__ minutes.
[2023-08-13 08:00] VITALS: BP 130/65; PULSE 91; RESP 18; TEMP 36.7; O2SAT 98
[2023-08-13] MEDS: Simethicone 80 MG TAB.CHEW PO ×3 (08:08→20:56)
[2023-08-13] MEDS: Levothyroxine Sodium 88 MCG TABLET PO (08:08)
[2023-08-13] MEDS: lisinopriL 5 MG TABLET PO (08:08)
[2023-08-13] MEDS: Lidocaine 4 % Patch ADH..PATCH 1 PATCH TRANSDERMA (08:10)
[2023-08-13 18:00] VITALS: BP 119/74; PULSE 84; RESP 18; TEMP 36.6; O2SAT 97
[2023-08-13] MEDS: risperiDONE 0.25 MG TABLET 0.5 MG PO (20:56)
[2023-08-13] MEDS: traZODone HCL 50 MG TABLET PO (20:57)
[2023-08-13] MEDS: Atorvastatin Calcium 80 MG TABLET PO (20:57)
[2023-08-14 08:00] VITALS: BP 124/65; PULSE 82; RESP 18; TEMP 36.2; O2SAT 99
[2023-08-14] MEDS: lisinopriL 5 MG TABLET PO (08:13)
[2023-08-14] MEDS: Levothyroxine Sodium 88 MCG TABLET PO (08:13)
[2023-08-14] MEDS: Lidocaine 4 % Patch ADH..PATCH 1 PATCH TRANSDERMA (08:13)
[2023-08-14] MEDS: Simethicone 80 MG TAB.CHEW PO ×3 (08:13→21:12)
--- NOTE | 2023-08-14 08:55 | HO.PSYCHPN ---
Subjective Subjective Date of Service: 08/14/23 Reason For Visit: Unspecified dementia Unspecified depressive disord Subjective Notes: Conditional Voluntary Interim History: The nursing staff reported the patient had being very confused she slept well last night and she woke up at 05:30 in the morning she remains paranoid with labile mood. On interview the patient denies new symptoms she looks pleasantly confused on approach. Mental Status Exam Mental Status Exam Patient Appearance: Appropriate Patient Orientation: Person and Situation Level of Consciousness: Awake and Appropriate Patient Behavior: Guarded and Passive Mood Description: Withdrawn and Constricted Affect Description: Calm Patient Cognition Impaired: Yes Ability to Follow Directions: Good Speech Pattern: Clear Hallucinations: None Delusions: Ideas of Reference Thought Process: Distracted Thought Content: positive for [place] and positive for Circumstantial Judgement: Fair Diagnostics Vital Signs (24Hr): Vital Signs - 24 hr 08/13/23 18:00 Temperature 97.8 F Pulse Rate 84 Respiratory Rate 18 Blood Pressure 119/74 Pulse Oximetry 97 Oxygen Delivery Method Room Air BMI result Body Mass Index 24.0 Medications Medications Current Medications Acetaminophen (Acetaminophen 325 Mg Tablet) 325 mg PO Q6H PRN PRN Reason: Headache/Pain Mild Scale (1-3) Last Admin: 08/12/23 00:21 Dose: 325 mg Al Hydroxide/Mg Hydroxide (Magnesium Hydrox/Alum Hydrox 30 Ml Oral.Susp) 30 ml PO Q6H PRN PRN Reason: Heartburn/Nausea Last Admin: 08/11/23 20:58 Dose: 30 ml Atorvastatin Calcium (Atorvastatin Calcium 80 Mg Tablet) 80 mg PO BEDTIME STEPH Last Admin: 08/13/23 20:57 Dose: 80 mg Levothyroxine Sodium (Levothyroxine Sodium 88 Mcg Tablet) 88 mcg PO DAILY STEPH Last Admin: 08/14/23 08:13 Dose: 88 mcg Lidocaine (Lidocaine 4 % Patch Adh..Patch) 1 patch TRANSDERMA DAILY STEPH; Protocol Last Admin: 08/14/23 08:13 Dose: 1 patch Lisinopril (Lisinopril 5 Mg Tablet) 5 mg PO DAILY STEPH; Protocol Last Admin: 08/14/23 08:13 Dose: 5 mg Magnesium Hydroxide (Milk Of Magnesia 30 Ml Oral.Susp) 30 ml PO DAILY PRN PRN Reason: Constipation Risperidone (Risperidone 0.25 Mg Tablet) 0.5 mg PO BEDTIME STEPH Last Admin: 08/13/23 20:56 Dose: 0.5 mg Simethicone (Simethicone 80 Mg Tab.Chew) 80 mg PO TID STEPH Last Admin: 08/14/23 08:13 Dose: 80 mg Trazodone HCl (Trazodone Hcl 50 Mg Tablet) 50 mg PO BEDTIME PRN PRN Reason: Insomnia Last Admin: 08/13/23 20:57 Dose: 50 mg Allergies Allergies Allergy/AdvReac Type Severity Reaction Status Date / Time aspirin Allergy Unknown Unknown Verified 08/05/23 21:31 Penicillins Allergy Unknown Unknown Verified 08/05/23 21:31 NSAIDS (Non-Steroidal AdvReac Unknown Unknown Verified 08/05/23 21:31 Anti-Inflamma Assessment & Plan Assessment & Plan (1) Major neurocognitive disorder due to Alzheimer's disease: Status: Acute Code(s): G30.9 - Alzheimer's disease, unspecified; F02.80 - Dementia in other diseases classified elsewhere, unspecified severity, without behavioral disturbance, psychotic disturbance, mood disturbance, and anxiety Plan Mrs. Ansari is a 78 year-old woman hx of AD who was brought from [place] to [facility] ED due to increase confusion, paranoid delusions of being and being to another resident. [id number] reports increase in paranoia since cymbalta was started 3 weeks ago and recently dose increased. Will stop cymbalta, reassess prior to starting antipsychotic if psychosis persists. PLAN 08/07 continue tx. d/c cymbalta as it appear to have worsen paranoia and confusion. pt appears better today, family agree. 08/08 continue tx. 08/09 continue tx. 08/13 continue same treatment 08/14 continue same treatment Reason for continued inpatient stay Substantial Risk for: inability to function, rapid decompensation and med/psych decompensation Time Spent With Patient Time: Total time managing care of this patient today __20__ minutes.
--- NOTE | 2023-08-14 14:25 | PM.EVENT ---
Event Note Date of Service: 08/14/23 Event Note: Brief hospitalist consult for patient with swelling and pain of distal aspect of 4th finger. Patient appears to have a case of mild paronychia. Patient should soak hand in warm water 3 times a day followed by application of bacitracin to nailbed. Thank you for allowing us to participate in the care of this patient. Signing off at this time. Please let us know if there are any acute complaints or questions. Time Spent With Patient Time: Total time managing care of this patient today ____ minutes.
[2023-08-14] MEDS: Bacitracin Oint 14 GM TUBE 1 APPL TOPICAL ×2 (15:23→21:13)
[2023-08-14 18:00] VITALS: BP 123/62; PULSE 80; TEMP 36.4; O2SAT 97
[2023-08-14] MEDS: Atorvastatin Calcium 80 MG TABLET PO (21:12)
[2023-08-14] MEDS: traZODone HCL 50 MG TABLET PO (21:12)
[2023-08-14] MEDS: risperiDONE 0.25 MG TABLET 0.5 MG PO (21:12)
[2023-08-15 07:45] VITALS: BP 122/71; PULSE 93; RESP 18; TEMP 36.5; O2SAT 94
[2023-08-15] MEDS: Levothyroxine Sodium 88 MCG TABLET PO (08:41)
[2023-08-15] MEDS: lisinopriL 5 MG TABLET PO (08:41)
[2023-08-15] MEDS: Simethicone 80 MG TAB.CHEW PO ×3 (08:41→20:37)
[2023-08-15] MEDS: Lidocaine 4 % Patch ADH..PATCH 1 PATCH TRANSDERMA (08:43)
--- NOTE | 2023-08-15 09:04 | HO.PSYCHPN ---
Subjective Subjective Date of Service: 08/15/23 Reason For Visit: Unspecified dementia Unspecified depressive disord Subjective Notes: Conditional Voluntary Healthcare Proxy: Yes Interim History: Pt appears less paranoid. No reports of being . Pt sleeping most of the night. No behavioral concerns. She reports difficulty hearing. Per nursing, pt visible on the unit, no aggression towards self or others. Review of Systems Review of Systems Pt denies chest pain, or other type of pain. No SOB. No diarrhea or constipation. Mental Status Exam Mental Status Exam Narrative: Appearance:casually groomed, fair hygiene, in NAD behavior:fearful Psychomotor: no agitation or retardation noted Speech:more clear, delayed in response, spontaneous TP:disorganized TC:talks about son who was murder, fearful of being here Mood: I don't know Affect:fearful, anxious SI:none HI:none VH/AH:appears internally preoccupied Delusions:delusions of being and thinks that resident is her - this is new in past 2 weeks. Insight/judgment: memory/cog: alert, not oriented to situation, month, date, year. Diagnostics Vital Signs (24Hr): Vital Signs - 24 hr 08/14/23 18:00 Temperature 97.6 F Pulse Rate 80 Blood Pressure 123/62 Pulse Oximetry 97 Oxygen Delivery Method Room Air BMI result Body Mass Index 24.0 Medications Medications Current Medications Acetaminophen (Acetaminophen 325 Mg Tablet) 325 mg PO Q6H PRN PRN Reason: Headache/Pain Mild Scale (1-3) Last Admin: 08/12/23 00:21 Dose: 325 mg Al Hydroxide/Mg Hydroxide (Magnesium Hydrox/Alum Hydrox 30 Ml Oral.Susp) 30 ml PO Q6H PRN PRN Reason: Heartburn/Nausea Last Admin: 08/11/23 20:58 Dose: 30 ml Atorvastatin Calcium (Atorvastatin Calcium 80 Mg Tablet) 80 mg PO BEDTIME STEPH Last Admin: 08/14/23 21:12 Dose: 80 mg Bacitracin (Bacitracin Oint 14 Gm Tube) 1 appl TOPICAL TID STEPH; Protocol Stop: 08/19/23 14:59 Last Admin: 08/14/23 21:13 Dose: 1 appl Levothyroxine Sodium (Levothyroxine Sodium 88 Mcg Tablet) 88 mcg PO DAILY STEPH Last Admin: 08/15/23 08:41 Dose: 88 mcg Lidocaine (Lidocaine 4 % Patch Adh..Patch) 1 patch TRANSDERMA DAILY STEPH; Protocol Last Admin: 08/15/23 08:43 Dose: 1 patch Lisinopril (Lisinopril 5 Mg Tablet) 5 mg PO DAILY STEPH; Protocol Last Admin: 08/15/23 08:41 Dose: 5 mg Magnesium Hydroxide (Milk Of Magnesia 30 Ml Oral.Susp) 30 ml PO DAILY PRN PRN Reason: Constipation Risperidone (Risperidone 0.25 Mg Tablet) 0.5 mg PO BEDTIME STEPH Last Admin: 08/14/23 21:12 Dose: 0.5 mg Simethicone (Simethicone 80 Mg Tab.Chew) 80 mg PO TID STEPH Last Admin: 08/15/23 08:41 Dose: 80 mg Trazodone HCl (Trazodone Hcl 50 Mg Tablet) 50 mg PO BEDTIME PRN PRN Reason: Insomnia Last Admin: 08/14/23 21:12 Dose: 50 mg Allergies Allergies Allergy/AdvReac Type Severity Reaction Status Date / Time aspirin Allergy Unknown Unknown Verified 08/05/23 21:31 Penicillins Allergy Unknown Unknown Verified 08/05/23 21:31 NSAIDS (Non-Steroidal AdvReac Unknown Unknown Verified 08/05/23 21:31 Anti-Inflamma Assessment & Plan Assessment & Plan (1) Major neurocognitive disorder due to Alzheimer's disease: Status: Acute Code(s): G30.9 - Alzheimer's disease, unspecified; F02.80 - Dementia in other diseases classified elsewhere, unspecified severity, without behavioral disturbance, psychotic disturbance, mood disturbance, and anxiety Plan Mrs. Ansari is a 78 year-old woman hx of AD who was brought from [facility] to [facility] ED due to increase confusion, paranoid delusions of being and being to another resident. [id number] reports increase in paranoia since cymbalta was started 3 weeks ago and recently dose increased. Will stop cymbalta, reassess prior to starting antipsychotic if psychosis persists. PLAN 08/07 continue tx. d/c cymbalta as it appear to have worsen paranoia and confusion. pt appears better today, family agree. 08/08 continue tx. 08/09 continue tx. 08/10 continue tx 08/11 risperidone 0.5mg po qhs 08/12 continue tx 08/15 continue tx. Reason for continued inpatient stay Substantial Risk for: inability to function Time Spent With Patient Time: Total time managing care of this patient today ____ minutes.
[2023-08-15] MEDS: Bacitracin Oint 14 GM TUBE 1 APPL TOPICAL ×3 (11:15→20:37)
[2023-08-15 18:00] VITALS: BP 128/68; PULSE 72; RESP 16; TEMP 36.2; O2SAT 99
[2023-08-15] MEDS: risperiDONE 0.25 MG TABLET 0.5 MG PO (20:36)
[2023-08-15] MEDS: Atorvastatin Calcium 80 MG TABLET PO (20:37)
[2023-08-16 08:00] VITALS: BP 122/63; PULSE 92; RESP 18; TEMP 36.4; O2SAT 97
[2023-08-16] MEDS: Simethicone 80 MG TAB.CHEW PO ×3 (08:30→20:16)
[2023-08-16] MEDS: lisinopriL 5 MG TABLET PO (08:30)
[2023-08-16] MEDS: Bacitracin Oint 14 GM TUBE 1 APPL TOPICAL ×2 (08:31→14:45)
[2023-08-16] MEDS: Levothyroxine Sodium 88 MCG TABLET PO (08:31)
--- NOTE | 2023-08-16 08:37 | P.PNPSI_ITS ---
Subjective Subjective Date of Service: 08/16/23 Reason For Visit: Unspecified dementia Unspecified depressive disord Subjective Notes: Conditional Voluntary Interim History: Pt has been visible on the unit. She slept most of the night, up few times to go to the bathroom. Pt unable to remember what happen day before. She denies SI/HI. No overt delusions nor psychosis noted. Review of Systems Review of Systems Pt denies chest pain, or other type of pain. No SOB. No diarrhea or constipation. Mental Status Exam Mental Status Exam Narrative: Appearance:casually groomed, fair hygiene, in NAD behavior:fearful Psychomotor: no agitation or retardation noted Speech:more clear, delayed in response, spontaneous TP:disorganized TC:talks about son who was murder, fearful of being here Mood: I don't know Affect:fearful, anxious SI:none HI:none VH/AH:appears internally preoccupied Delusions:delusions of being and thinks that resident is her - this is new in past 2 weeks. Insight/judgment: memory/cog: alert, not oriented to situation, month, date, year. Diagnostics Vital Signs (24Hr): Vital Signs - 24 hr 08/15/23 18:00 Temperature 97.1 F Pulse Rate 72 Respiratory Rate 16 Blood Pressure 128/68 Pulse Oximetry 99 Oxygen Delivery Method Room Air BMI result Body Mass Index 24.0 Medications Medications Current Medications Acetaminophen (Acetaminophen 325 Mg Tablet) 325 mg PO Q6H PRN PRN Reason: Headache/Pain Mild Scale (1-3) Last Admin: 08/12/23 00:21 Dose: 325 mg Al Hydroxide/Mg Hydroxide (Magnesium Hydrox/Alum Hydrox 30 Ml Oral.Susp) 30 ml PO Q6H PRN PRN Reason: Heartburn/Nausea Last Admin: 08/11/23 20:58 Dose: 30 ml Atorvastatin Calcium (Atorvastatin Calcium 80 Mg Tablet) 80 mg PO BEDTIME STEPH Last Admin: 08/15/23 20:37 Dose: 80 mg Bacitracin (Bacitracin Oint 14 Gm Tube) 1 appl TOPICAL TID STEPH; Protocol Stop: 08/19/23 14:59 Last Admin: 08/16/23 08:31 Dose: 1 appl Levothyroxine Sodium (Levothyroxine Sodium 88 Mcg Tablet) 88 mcg PO DAILY STEPH Last Admin: 08/16/23 08:31 Dose: 88 mcg Lidocaine (Lidocaine 4 % Patch Adh..Patch) 1 patch TRANSDERMA DAILY STEPH; Protocol Last Admin: 08/15/23 08:43 Dose: 1 patch Lisinopril (Lisinopril 5 Mg Tablet) 5 mg PO DAILY STEPH; Protocol Last Admin: 08/16/23 08:30 Dose: 5 mg Magnesium Hydroxide (Milk Of Magnesia 30 Ml Oral.Susp) 30 ml PO DAILY PRN PRN Reason: Constipation Risperidone (Risperidone 0.25 Mg Tablet) 0.5 mg PO BEDTIME STEPH Last Admin: 08/15/23 20:36 Dose: 0.5 mg Simethicone (Simethicone 80 Mg Tab.Chew) 80 mg PO TID STEPH Last Admin: 08/16/23 08:30 Dose: 80 mg Trazodone HCl (Trazodone Hcl 50 Mg Tablet) 50 mg PO BEDTIME PRN PRN Reason: Insomnia Last Admin: 08/14/23 21:12 Dose: 50 mg Allergies Allergies Allergy/AdvReac Type Severity Reaction Status Date / Time aspirin Allergy Unknown Unknown Verified 08/05/23 21:31 Penicillins Allergy Unknown Unknown Verified 08/05/23 21:31 NSAIDS (Non-Steroidal AdvReac Unknown Unknown Verified 08/05/23 21:31 Anti-Inflamma Assessment & Plan Assessment & Plan (1) Major neurocognitive disorder due to Alzheimer's disease: Status: Acute Code(s): G30.9 - Alzheimer's disease, unspecified; F02.80 - Dementia in other diseases classified elsewhere, unspecified severity, without behavioral disturbance, psychotic disturbance, mood disturbance, and anxiety Plan Mrs. Ansari is a 78 year-old woman hx of AD who was brought from [facility] to [facility] ED due to increase confusion, paranoid delusions of being and being to another resident. [id number] reports increase in paranoia since cymbalta was started 3 weeks ago and recently dose increased. Will stop cymbalta, reassess prior to starting antipsychotic if psychosis persists. PLAN 08/07 continue tx. d/c cymbalta as it appear to have worsen paranoia and confusion. pt appears better today, family agree. 08/08 continue tx. 08/09 continue tx. 08/10 continue tx 08/11 risperidone 0.5mg po qhs 08/12 continue tx 08/15 continue tx. 08/16 continue tx. Reason for continued inpatient stay Substantial Risk for: inability to function Time Spent With Patient Time: Total time managing care of this patient today ____ minutes.
[2023-08-16] MEDS: Lidocaine 4 % Patch ADH..PATCH 1 PATCH TRANSDERMA (08:59)
[2023-08-16 18:00] VITALS: BP 118/60; PULSE 97; RESP 17; TEMP 36.7; O2SAT 97
[2023-08-16] MEDS: risperiDONE 0.25 MG TABLET 0.5 MG PO (20:16)
[2023-08-16] MEDS: traZODone HCL 50 MG TABLET PO (20:16)
[2023-08-16] MEDS: Atorvastatin Calcium 80 MG TABLET PO (20:16)
[2023-08-17] MEDS: Acetaminophen 325 MG TABLET PO (00:28)
[2023-08-17 08:29] VITALS: BP 101/56; PULSE 91; RESP 17; TEMP 36.4; O2SAT 99
[2023-08-17] MEDS: Simethicone 80 MG TAB.CHEW PO (08:32)
[2023-08-17] MEDS: lisinopriL 5 MG TABLET PO (08:32)
[2023-08-17] MEDS: Levothyroxine Sodium 88 MCG TABLET PO (08:33)
[2023-08-17] MEDS: Lidocaine 4 % Patch ADH..PATCH 1 PATCH TRANSDERMA (08:34)
[2023-08-17] MEDS: Bacitracin Oint 14 GM TUBE 1 APPL TOPICAL (08:36)
--- NOTE | 2023-08-17 09:31 | P.DS_ITS ---
DS: Providers Provider Date of Service: 08/17/23 Date of admission: 08/05/23 20:51 Primary care physician: Vinicio Saunders MD Consults: 08/05/23 22:01 Consult to Hospitalist Routine Comment: Consulting Provider: Hospitalist Reason For Exam: medical H&P DS: Diagnosis Discharge Diagnosis (1) Major neurocognitive disorder due to Alzheimer's disease: Status: Acute DS: Medications Discharge Medications Home Medications: Previous Rx's Medication Instructions Recorded atorvastatin 80 mg tablet 80 mg PO BEDTIME #30 tabs 08/17/23 bacitracin 500 unit/gram topical 1 appl topical TID #14 grams 08/17/23 ointment levothyroxine 88 mcg tablet 88 mcg PO DAILY #30 tabs 08/17/23 lidocaine 4 % topical patch 1 patch transdermal DAILY #30 ea 08/17/23 (Lidocaine Pain Relief) lisinopril 5 mg tablet 5 mg PO DAILY #30 tabs 08/17/23 risperidone 0.5 mg tablet 0.5 mg PO BEDTIME #30 tabs 08/17/23 simethicone 80 mg chewable tablet 80 mg PO TID #30 tabs 08/17/23 (Gas Relief (simethicone)) trazodone 50 mg tablet 50 mg PO BEDTIME PRN Insomnia #30 08/17/23 tabs Mental Status Exam Mental Status Exam Narrative: Appearance:casually groomed, fair hygiene, in NAD behavior:fearful Psychomotor: no agitation or retardation noted Speech:more clear, regular response rate, spontaneous TP:more organized, difficulty finding words TC:feeling happy on the unit, hoping to see family soon Mood: good Affect:congruent SI:none HI:none VH/AH:none Delusions:no overt delusional content noted or reported Insight/judgment:impaired x 2. memory/cog: alert, not oriented to situation, month, date, year. DS: Summary Hospital Course Hospital Course: Subjective Notes: [place] Warning and Section 12B Narrative: Ms. Ansari is a 78 year-old woman with hx of AD dementia. Pt was brought via EMS from [facility] to [facility] ED due to increased agitation, crying, drooling and increasingly more confused. Medical work up in the ED including CBC, CMP, head CT. UA did not show s/s of UTI. Chest X-ray. All unremarkable. Per heyqffvz-hf-pwy cymbalta had been increased and pt few days after presented as more paranoid and suspicious, reporting that she was . On the unit, pt presents as tearful. She does not know where she is. She reports one of her son's was murdered. She reports I don't know if it was here. Pt unable to provide much information. She asks this group underwriter to contact her family. She does say that she has memory problems and she is forgetful. She is not able to tell me the year, month or date. Past Psychiatric History: Inpatient: none OP: [facility], Dr. Valdivia [phone] Past medication trials: cymbalta. Medical Evaluation Reviewed: Yes HOSPITAL COURSE On the unit, pt initially presented as very confused, fearful and with some degree of paranoia. Pt speech was disorganized with some derailment. Collateral information was gathered from her son (and HCP) and her mjlmimoa-jf-ery who report increase delusions of being , of being in romantic relationship with a resident at [facility] and more paranoid towards staff. After discussing risks, benefit and alternative treatment options with HCP as pt does not have capacity to make medical decisions, cymbalta was discontinued. She was also tapered off ativan which it appeared was mostly for sleep. Pt started to present as less paranoid, speech more organized although at baseline pt due to dementia has poverty of thought ,difficulty finding words and not oriented to place or situation, month or year. Mrs. Ansari was sleeping through the night. When asked about ideas of being , she would laugh stating I can't be , I'm 78! She did have some ideas of people stealing from her and feeling like she couldn't trust staff on the unit. This group underwriter met with daughter in law and patient. Family agree to start low dose risperidone 0.5mg po qhs as it appears pt is sensitive to medications. She continues to present as much more brighter, less suspicious, no paranoia, visible on the unit and social with select peers. No signs of aggression towards self or others was seen while on the unit. She denied SI/HI. No overt signs of VH/AH. VS were stable. She was started on lidocaine patch for neck pain- recommended follow up with PCP to further manage pain and dx. Status at Discharge Cognitive/behavioral status at discharge: Pt with brighter, non labile affect. No SI/HI. No overt delusions or psychosis noted or reported. At baseline, pt not oriented to place, situation, month or year. Her speech more organized but marked with significant difficulty finding words, poverty of thought. No signs of aggression towards self or others. Functional status at discharge: independent ambulation Overall status at discharge: patient is progressing back to baseline Time Spent with Patient Time attestation: Total time managing care of this patient today _40___ minutes. Time spent: Greater than 30 minutes Discharge Plan Discharge Anticipated Discharge Date/Time: 08/17/23 09:15 Patient Disposition: er [facility] Discharge Diagnosis: Major Neurocognitive Disorder Referrals: Dr. Valdivia - Psychiatrist [Other] - 1 Week (Staff will call to schedule follow up appointment for patient. ) Vinicio Saunders MD [Primary Care Provider] - 1 Week (This appointment will be scheduled by [facility] ) Discharge Medications: New atorvastatin 80 mg Tablet 80 mg PO BEDTIME Qty: 30 0RF lisinopril 5 mg Tablet 5 mg PO DAILY Qty: 30 0RF Protocol: Hold for SBP< HOLD for SBP < : 90 risperidone 0.5 mg tablet 0.5 mg PO BEDTIME Qty: 30 0RF lidocaine [Lidocaine Pain Relief] 4 % Adhesive Patch,Medicated 1 patch transdermal DAILY Qty: 30 0RF Protocol: Apply to: Apply to: neck trazodone 50 mg Tablet 50 mg PO BEDTIME PRN (Reason: Insomnia) Qty: 30 0RF bacitracin 500 unit/gram Ointment 1 appl topical TID Qty: 14 0RF Protocol: Apply to: Apply to: Left fourth fingernail levothyroxine 88 mcg Tablet 88 mcg PO DAILY Qty: 30 0RF simethicone [Gas Relief (simethicone)] 80 mg Tablet,Chewable 80 mg PO TID Qty: 30 0RF Discontinued atorvastatin 80 mg Tablet 80 mg PO BEDTIME lisinopril 5 mg Tablet 5 mg PO DAILY lorazepam [Ativan] 1 mg Tablet 1 mg PO NEEDED lorazepam [Ativan] 1 mg Tablet 1 mg PO BEDTIME levothyroxine 88 mcg Capsule 88 mcg PO DAILY duloxetine 60 mg Capsule, Delayed Rel Sprinkle 60 mg PO DAILY Discharge Orders: Discharge Order (Routine); Ordered 08/17/23 Ordered By: An Macias Diet: Regular diet Activity on Discharge: As tolerated Stand Alone Forms: Patient Portal Discharge page Care Plan Goals: 1. Maintain mood 2. No aggression towards self or others. 3. No SI/HI 4. No overt delusional content noted or reported Health Concerns: Follow up with PCP Plan of Treatment: 1. Take medications as prescribed- pt can't manage medications on her own due to cognitive impairments 2. Go to nearest ED or call 911 in event of emergency Assessment: Pt with bright, less suspicious and guarded affect. No oriented to place or situation at baseline due to dementia. No aggression towards self or others. No overt delusions or psychosis noted.
== END 2023-08-17 11:10 | DRG 42 ==
PROVIDERS: Admitting Provider Psychiatry & Neurology Psychiatry; PCP Orthopaedic Surgery Adult Reconstructive Orthopaedic Surgery; Visit Provider Psychiatry & Neurology Psychiatry
DX: G30.9 Alzheimer's disease, unspecified (principal); F02.80 Dementia in other diseases classified elsewhere, unspecified severity, without behavioral disturbance, psychotic disturbance, mood disturbance, and anxiety; E03.9 Hypothyroidism, unspecified; E78.5 Hyperlipidemia, unspecified; I10 Essential (primary) hypertension; Z79.890 Hormone replacement therapy; Z79.899 Other long term (current) drug therapy

== ENCOUNTER → 2023-08-05 20:51 | Outpatient (BNV) | payer MEDICAID, SELFPAY | PROVIDERS: Admitting Provider Psychiatry & Neurology Psychiatry; PCP Orthopaedic Surgery Adult Reconstructive Orthopaedic Surgery; Visit Provider Physician Assistant | DX: Z02.2 Encounter for examination for admission to residential institution (principal) | CPT/HCPCS: 99429; 99499 ==

== ENCOUNTER → 2023-08-05 20:51 | Outpatient (BNV) | payer OTHER, SELFPAY | PROVIDERS: Admitting Provider Psychiatry & Neurology Psychiatry; PCP Orthopaedic Surgery Adult Reconstructive Orthopaedic Surgery; Visit Provider Social Worker | DX: G30.9 Alzheimer's disease, unspecified (principal); F02.80 Dementia in other diseases classified elsewhere, unspecified severity, without behavioral disturbance, psychotic disturbance, mood disturbance, and anxiety | CPT/HCPCS: 90792; 99231; 99232; 99239 ==